=== PATIENT | male | born 1975 | race Caucasian/White ===

== ENCOUNTER 2020-04-28 17:18 | Inpatient (IN) | payer OTHER ==
[~2020-04-28] VITALS: Ht 165.1 cm; Wt 171.1 kg
[2020-04-28 17:31] VITALS: BP 150/77
[2020-04-28 18:28] LABS: BASO % 0.2 % (0.0-1.0); HEMATOCRIT 38.2 % (42.0-52.0); LYMPH # 0.8 10*3/uL (1.3-4.4); LYMPH % 20.4 % (27.0-41.0); MEAN CELL VOLUME 92.5 fl (80.0-94.0); MEAN CORPUSCULAR HGB 30.5 pg (27.0-31.0); MONO # 0.4 10*3/uL (0.1-1.0); MONO % 10.2 % (3.0-9.0); NEUT # 2.8 10*3/uL (2.3-7.9); NEUT % 68.5 % (47.0-73.0); PLATELET COUNT AUTOMATED 175 10*3/uL (130-400); RED BLOOD COUNT 4.13 10*6/uL (4.50-5.90); RED CELL DISTRI WIDTH 12.9 % (0-14.5)
[2020-04-28 18:43] LABS: ACT PARTIAL THROMBO TIME 25.9 SECONDS (20.0-32.1)
[2020-04-28 18:54] LABS: ALBUMIN 2.8 gm/dl (3.1-4.5); ALKALINE PHOSPHATASE 59 U/L (45-117); BUN 10 mg/dl (7-24); CHLORIDE 105 mmol/L (98-107); CREATININE 1.11 mg/dL (0.70-1.30); LDH 484 U/L (87-241); LIPASE 123 U/L (73-393); POTASSIUM 3.6 mmol/L (3.5-5.1); SGOT/AST 63 IU/L (3-35); SGPT/ALT 82 U/L (12-78); SODIUM 137 mmol/L (136-145); TOTAL PROTEIN 7.5 gm/dL (6.4-8.2); TROPONIN I < 0.015 ng/ml (<0.045)
--- NOTE | 2020-04-28 20:26 | NUR ---
UPON WATCHING THE PATIENTS VITAL SIGNS ON THE MONITOR, HIS PULSE OX WAS SHOWING 87-88% ON 4 LITERS VIA NASAL CANNULA. EQUIPMENT WAS CHECKED TO DETERMINE IF THERE WAS A MALFUNCTION WITH EQUIPMENT. PATIENT WAS THEN INCREASED TO 6 LITERS. NO CHANGE IN STATUS. PATIENT THEN PLACED ON A NON REBREATHER AT 15 LITERS. PATIENT PULSE OX INCREASED TO 95%. PROVIDER DR SCHMITZ INFORMED OF THIS INFORMATION. THE PATIENT DENIES ANY SOB AT THIS TIME. PATIENT IS NO OBVIOUS DISTRESS.
--- NOTE | 2020-04-28 20:45 | NUR ---
PER DR SCHMITZ, RESPIRATORY HAS BEEN CONTACTED TO POSSIBLY PLACE THE PATIENT ON BIPAP.
--- NOTE | 2020-04-28 20:46 | NUR ---
DR SCHMITZ REQUEST THAT THE PATIENT BE MOVED TO ED ROOM #7.
--- NOTE | 2020-04-28 20:55 | NUR ---
pt placed on an opti flow for low sats. At this time he is resting comfortably on a flow of 50 and an o2 of 50%. Pt sats at this time are 95%. Pt is tammy. very well at this time. Will continue to monitor for a desat and adjust as needed.
[2020-04-28 21:18] VITALS: BP 110/68
--- NOTE | 2020-04-28 21:30 | NUR ---
PATIENT IS RESTING IN POSITION OF COMFORT. TOLERATING OPTI-FLOW. CALL LIGHT IN REACH. WILL CONTINUE TO MONITOR PT.
--- NOTE | 2020-04-28 21:45 | NUR ---
PATIENT IS RESTING. ABLE TO BE VISUALIZED FROM [place] AT DESK PATIENT VITAL SIGNS ARE STABLE AT THIS TIME. WILL CONTINUE TO MONITOR PT.
[2020-04-28 21:48] VITALS: BP 130/74
--- NOTE | 2020-04-28 22:00 | NUR ---
PATIENT IS RESTING AT THIS TIME. CALL LIGHT WITHIN REACH. PROVIDED TELEVISION, TOLERATING OPTI-FLOW. WILL CONTINUE TO MONITOR PT.
[2020-04-28 22:18] VITALS: BP 130/74
[2020-04-28 22:48] VITALS: BP 108/67
[2020-04-28 23:02] LABS: ABG BASE EXCESS -1.3 mmol/L (-2.0-2.0); ARTERIAL BLOOD GAS PH 7.431 (7.35-7.45)
[2020-04-28 23:16] VITALS: BP 108/67
[2020-04-29] VITALS (7 sets, daily range): BP systolic 104–138; BP diastolic 40–94
--- NOTE | 2020-04-29 | NUR ---
PT SLEEPING AT THIS TIME LOLA DAY RN.
--- NOTE | 2020-04-29 00:44 | NUR ---
PT REMAINS SLEEPING MONITOR SHOWING SINUS RHYTHM. LOLA DAY RN.
--- NOTE | 2020-04-29 02:50 | NUR ---
A 45, admitted to , under the services of ROSLYN Walton DO with a diagnosis of SUSPECTED COVID-19, RESPIRATORY FAILURE, PNEUMONIA. Chief complaint is SHORTNESS OF BREATH. Patient arrived via bed from ER. Monitor applied. Initial assessment completed. Vital signs taken and recorded. ROSLYN WALTON DO notified of admission to the unit. Orders received. See assessment for past medical history, medications and allergies. Patient and/or family oriented to unit. [address] visitation policy reviewed. Clothing/patient valuable form completed. VICTOR MANUEL STONER
--- NOTE | 2020-04-29 03:55 | NUR ---
MEDICATED WITH PRN TYLENOL FOR LOW GRADE TEMP OF 99.1.
--- NOTE | 2020-04-29 05:44 | NUR ---
NOTIFIED OF NEW CONSULT. NEW ORDERS RECEIVED.
--- NOTE | 2020-04-29 05:45 | NUR ---
ROSS FROM RESPIRATORY NOTIFIED WANTS PATIENT ON BIPAP 16/10 AND ABG IN 2 HOURS. ROSS STATES SHE WILL BE UP TO PUT HIM ON.
[2020-04-29 05:50] LABS: ALBUMIN 2.8 gm/dl (3.1-4.5); ALKALINE PHOSPHATASE 61 U/L (45-117); BUN 14 mg/dl (7-24); CHLORIDE 108 mmol/L (98-107); CHOLESTEROL 143 mg/dL (<200); CREATININE 0.93 mg/dL (0.70-1.30); LDH 496 U/L (87-241); POTASSIUM 4.1 mmol/L (3.5-5.1); SGOT/AST 54 IU/L (3-35); SGPT/ALT 76 U/L (12-78); SODIUM 138 mmol/L (136-145); TRIGLYCERIDES 98 mg/dl (<150); VLDL CHOLESTEROL 20 mg/dL (6-40)
[2020-04-29 05:51] LABS: CPK 112 U/L (39-308); HDL CHOLESTEROL 35 mg/dl (40-60); LDL CHOLESTEROL 88 mg/dL (9-159)
[2020-04-29 06:07] LABS: BASO % 0.3 % (0.0-1.0); HEMATOCRIT 38.3 % (42.0-52.0); LYMPH # 0.6 10*3/uL (1.3-4.4); MEAN CELL VOLUME 91.2 fl (80.0-94.0); MEAN CORPUSCULAR HGB 30.2 pg (27.0-31.0); MEAN CORPUSCULAR HGB CONC 33.2 g/dl (33.0-37.0); MEAN PLATELET VOLUME 10.1 fl (9.6-12.3); MONO # 0.3 10*3/uL (0.1-1.0); MONO % 10.9 % (3.0-9.0); NEUT # 2.1 10*3/uL (2.3-7.9); NEUT % 68.8 % (47.0-73.0); PLATELET COUNT AUTOMATED 195 10*3/uL (130-400); RED CELL DISTRI WIDTH 12.8 % (0-14.5); WHITE BLOOD COUNT 3.1 10*3/uL (4.8-10.8)
--- NOTE | 2020-04-29 06:15 | NUR ---
PT SWABBED IN ER. DUPLICATED SWAB PUT IN PER OK TO CANCEL DUPLICATE SWAB.
[2020-04-29 07:40] LABS: FERRITIN 538.4 ng/mL (22.0-322.0); VITAMIN D, 25-HYDROXY 7.7 ng/mL (30-100)
--- NOTE | 2020-04-29 09:00 | NUR ---
[employer] Director in to talk to patient. Patient states lives at home alone with his family checking in on him. There are 0 steps in the home. Physician: no family physician Pharmacy: print Home health services: none Patient's level of ADLs: INDEPENDENT Patient has working utilities: yes DME: none Follow-up physician's appointment after d/c: will be made by the hospitalist nurse director upon discharge Does patient want to access PORTAL?: no Discharge plan discussed with patient. He lives at home alone with his family checking in on him. he states he is independent in his ADLS and ambulation. Discussed home health care services and he declines. CM will continue to follow for any discharge planning needs. When medically stable he will be discharged to home. He states a family member will provide transportation on discharge. MAHENDRA QUAN
--- NOTE | 2020-04-29 09:10 | NUR ---
TOOK PT OFF BIPAP AFTER ABG DONE, PLACED PT ON 6LNC, SPO2 93%
[2020-04-29 09:12] LABS: ABG BASE EXCESS -1.5 mmol/L (-2.0-2.0); ARTERIAL BLOOD GAS PH 7.407 (7.35-7.45)
[2020-04-29 16:36] LABS: ARTERIAL BLOOD GAS PH 7.437 (7.35-7.45)
--- NOTE | 2020-04-29 19:30 | NUR ---
PT SITTING UP IN BED. RESPS EASY AND NON LABORED. NO S/S OF DISTRESS NOTED. VSS. WHITE BOARD UPDATED. POC DISCUSSED W PT. A/O X3. ON BIPAP AT THIS TIME. C/O HUERTA. NO SOB @REST. PT ENCOURAGED TO PRONE AND DEEP BREATHE TOLERATED. WILL CONTINUE TO MONITOR. CALL LIGHT WITHIN REACH.
--- NOTE | 2020-04-29 19:46 | NUR ---
PT PLACED ON BIPAP.
[2020-04-30] VITALS: BP 125/87
--- NOTE | 2020-04-30 01:02 | NUR ---
PT SLEEPING. RESPS EASY AND NON LABORED. NO S/S OF DISTRESS NOTED. CALL LIGHT WITHIN REACH.
--- NOTE | 2020-04-30 05:34 | NUR ---
PT ASKED TO BE TAKEN OFF BIPAP. PLACED ON 6 LHFNC
[2020-04-30 06:27] LABS: HEMATOCRIT 38.8 % (42.0-52.0); LYMPH # 0.9 10*3/uL (1.3-4.4); LYMPH % 13.9 % (27.0-41.0); MEAN CELL VOLUME 92.4 fl (80.0-94.0); MEAN CORPUSCULAR HGB 30.5 pg (27.0-31.0); MEAN PLATELET VOLUME 10.2 fl (9.6-12.3); MONO # 0.7 10*3/uL (0.1-1.0); MONO % 10.2 % (3.0-9.0); NEUT # 4.8 10*3/uL (2.3-7.9); NEUT % 74.6 % (47.0-73.0); PLATELET COUNT AUTOMATED 242 10*3/uL (130-400); RED CELL DISTRI WIDTH 12.9 % (0-14.5); WHITE BLOOD COUNT 6.4 10*3/uL (4.8-10.8)
[2020-04-30 06:45] LABS: ALBUMIN 2.9 gm/dl (3.1-4.5); ALKALINE PHOSPHATASE 56 U/L (45-117); BUN 18 mg/dl (7-24); CHLORIDE 106 mmol/L (98-107); CREATININE 0.94 mg/dL (0.70-1.30); LDH 481 U/L (87-241); POTASSIUM 3.7 mmol/L (3.5-5.1); SGOT/AST 37 IU/L (3-35); SGPT/ALT 65 U/L (12-78); SODIUM 140 mmol/L (136-145)
[2020-04-30 06:46] LABS: CPK 78 U/L (39-308)
[2020-04-30 08:00] VITALS: BP 138/81
--- NOTE | 2020-04-30 09:00 | NUR ---
CM called in to speak to patient. Discharge plan is for patient to return home. Discussed home health care services and he declines. CM will continue to follow for any discharge planning needs.
[2020-04-30 09:12] LABS: ABG BASE EXCESS 1.1 mmol/L (-2.0-2.0); ARTERIAL BLOOD GAS PH 7.452 (7.35-7.45)
[2020-04-30 12:00] VITALS: BP 123/78
--- NOTE | 2020-04-30 14:16 | NUR ---
PT PLACED ON BIPAP. TOLERATING WELL. SPO2 97%
[2020-04-30 16:00] VITALS: BP 105/46
--- NOTE | 2020-04-30 16:03 | NUR ---
Patient resting quietly with no c/o discomfort. Respirations easy and regular. Vital signs stable. No overt distress. PADMA HARKINS
--- NOTE | 2020-04-30 19:10 | NUR ---
PT TAKEN OFF BIPAP AND PLACED ON 6LNC. DINNER TIME
[2020-04-30 20:00] VITALS: BP 119/66
[2020-05-01] VITALS: BP 107/47
--- NOTE | 2020-05-01 04:44 | NUR ---
24 HR chart check completed.
[2020-05-01 07:30] LABS: HEMATOCRIT 38.2 % (42.0-52.0); MEAN CELL VOLUME 92.9 fl (80.0-94.0); MEAN CORPUSCULAR HGB 30.7 pg (27.0-31.0); MEAN PLATELET VOLUME 9.8 fl (9.6-12.3); PLATELET COUNT AUTOMATED 267 10*3/uL (130-400); RED BLOOD COUNT 4.11 10*6/uL (4.50-5.90); WHITE BLOOD COUNT 6.8 10*3/uL (4.8-10.8)
[2020-05-01 07:45] LABS: ALBUMIN 2.6 gm/dl (3.1-4.5); ALKALINE PHOSPHATASE 53 U/L (45-117); BUN 21 mg/dl (7-24); CHLORIDE 111 mmol/L (98-107); CREATININE 0.94 mg/dL (0.70-1.30); LDH 476 U/L (87-241); POTASSIUM 4.2 mmol/L (3.5-5.1); SGOT/AST 30 IU/L (3-35); SGPT/ALT 57 U/L (12-78); SODIUM 144 mmol/L (136-145); TOTAL PROTEIN 7.5 gm/dL (6.4-8.2)
[2020-05-01 07:57] LABS: CPK 56 U/L (39-308)
[2020-05-01 08:00] VITALS: BP 118/77
[2020-05-01 08:47] LABS: ATYPICAL LYMPHS 2 % (0-0); PLATELET SUFFICIENCY NORMAL (NORMAL); TOTAL CELLS COUNTED 100 #CELLS
--- NOTE | 2020-05-01 09:00 | NUR ---
CM spoke to patient via phone. Discharge plan is for patient to return home. Discussed home health care services and he declines. CM will continue to follow for any discharge planning needs.
[2020-05-01 09:23] LABS: ABG BASE EXCESS 1.2 mmol/L (-2.0-2.0); ARTERIAL BLOOD GAS PH 7.442 (7.35-7.45)
--- NOTE | 2020-05-01 09:37 | NUR ---
CUTTER GRINDER OPERATOR RECEIVED CALL FROM PATIENTS TRANSITION CARE RN [facility] ([phone]). LINDA ASKED FOR AN UPDATE. CUTTER GRINDER OPERATOR PROVIDED UPDATE.
--- NOTE | 2020-05-01 10:02 | NUR ---
TYLENO, GIVEN FOR C/O HEADACHE. WILL MONITOR.
[2020-05-01 12:00] VITALS: BP 156/70
[2020-05-01 16:00] VITALS: BP 112/90
--- NOTE | 2020-05-01 17:18 | NUR ---
PT. ON NC AT 6L, SAT 95%. PT. DECLINES BIPAP. TOLD PT. DR. HARE ENCOURAGES HIM TO WEAR MUCH POSSIBLE.
--- NOTE | 2020-05-01 19:38 | NUR ---
24 HR chart check completed.
[2020-05-01 20:00] VITALS: BP 146/83
[2020-05-02] VITALS: BP 134/82
--- NOTE | 2020-05-02 03:39 | NUR ---
PATIENT REMOVED FROM BIPAP AT 0310 AM PER THEIR REQUEST. PATIENT PLACED ON NASAL CANNULA WITH CONTINUOES PULSE OX ON. RN AWARE.
--- NOTE | 2020-05-02 06:00 | NUR ---
SLEEPING NOT ACUTE DISTRESS NOTED. DID WELL THROUGHOUT SHIFT.
[2020-05-02 08:00] VITALS: BP 104/90
[2020-05-02 08:18] LABS: HEMATOCRIT 37.9 % (42.0-52.0); MEAN CELL VOLUME 93.8 fl (80.0-94.0); MEAN CORPUSCULAR HGB 30.4 pg (27.0-31.0); MEAN CORPUSCULAR HGB CONC 32.5 g/dl (33.0-37.0); MEAN PLATELET VOLUME 10.2 fl (9.6-12.3); PLATELET COUNT AUTOMATED 294 10*3/uL (130-400); RED BLOOD COUNT 4.04 10*6/uL (4.50-5.90); RED CELL DISTRI WIDTH 13.2 % (0-14.5); WHITE BLOOD COUNT 6.8 10*3/uL (4.8-10.8)
[2020-05-02 08:45] LABS: CREATININE 0.82 mg/dL (0.70-1.30)
[2020-05-02 08:56] LABS: ATYPICAL LYMPHS 1 % (0-0); PLATELET SUFFICIENCY NORMAL (NORMAL); TOTAL CELLS COUNTED 100 #CELLS
[2020-05-02 09:08] LABS: ABG BASE EXCESS -0.6 mmol/L (-2.0-2.0); ARTERIAL BLOOD GAS PH 7.438 (7.35-7.45)
[2020-05-02 12:00] VITALS: BP 105/73
[2020-05-02 16:00] VITALS: BP 131/74
[2020-05-02 20:00] VITALS: BP 121/60
--- NOTE | 2020-05-02 21:08 | NUR ---
PATIENT REFUSED TO HAVE LOVENONX SHOT GIVEN.
--- NOTE | 2020-05-02 23:52 | NUR ---
PLACED PATIENT ON BIPAP FOR HS
[2020-05-03] VITALS: BP 140/74
--- NOTE | 2020-05-03 01:52 | NUR ---
24 HR chart check completed.
--- NOTE | 2020-05-03 03:44 | NUR ---
CALLED OUT AND WANTED OFF THE BIPAP. BIPAP TAKEN OFF AND O2 6L HIGH FLOW NC IN USE. UP TO BATHROOM VOIDED 425CC CLEAR YELLOW.
[2020-05-03 06:24] LABS: HEMATOCRIT 38.1 % (42.0-52.0); MEAN CELL VOLUME 91.4 fl (80.0-94.0); MEAN CORPUSCULAR HGB 30.5 pg (27.0-31.0); MEAN CORPUSCULAR HGB CONC 33.3 g/dl (33.0-37.0); MEAN PLATELET VOLUME 10.1 fl (9.6-12.3); PLATELET COUNT AUTOMATED 340 10*3/uL (130-400); RED BLOOD COUNT 4.17 10*6/uL (4.50-5.90); RED CELL DISTRI WIDTH 12.9 % (0-14.5); WHITE BLOOD COUNT 8.1 10*3/uL (4.8-10.8)
[2020-05-03 06:29] LABS: ALBUMIN 2.6 gm/dl (3.1-4.5); BUN 15 mg/dl (7-24); CHLORIDE 108 mmol/L (98-107); POTASSIUM 3.6 mmol/L (3.5-5.1); SODIUM 142 mmol/L (136-145)
[2020-05-03 06:33] LABS: ALKALINE PHOSPHATASE 57 U/L (45-117); CREATININE 0.87 mg/dL (0.70-1.30); LDH 407 U/L (87-241); SGOT/AST 21 IU/L (3-35); SGPT/ALT 74 U/L (12-78); TOTAL PROTEIN 7.3 gm/dL (6.4-8.2)
[2020-05-03 07:25] LABS: ATYPICAL LYMPHS 1 % (0-0); TOTAL CELLS COUNTED 100 #CELLS
[2020-05-03 07:26] LABS: PLATELET SUFFICIENCY NORMAL (NORMAL); POLYCHROMASIA SLIGHT
[2020-05-03 08:00] VITALS: BP 119/79
[2020-05-03 08:01] LABS: ABG BASE EXCESS 2.4 mmol/L (-2.0-2.0); ARTERIAL BLOOD GAS PH 7.494 (7.35-7.45)
[2020-05-03 12:00] VITALS: BP 128/69
[2020-05-03 16:00] VITALS: BP 108/54
[2020-05-03 20:00] VITALS: BP 130/56
--- NOTE | 2020-05-03 22:32 | NUR ---
24 HR chart check completed.
[2020-05-04] VITALS: BP 132/92
[2020-05-04 07:31] LABS: HEMATOCRIT 38.6 % (42.0-52.0); MEAN CELL VOLUME 91.5 fl (80.0-94.0); MEAN CORPUSCULAR HGB 29.9 pg (27.0-31.0); MEAN CORPUSCULAR HGB CONC 32.6 g/dl (33.0-37.0); MEAN PLATELET VOLUME 9.9 fl (9.6-12.3); PLATELET COUNT AUTOMATED 332 10*3/uL (130-400); RED BLOOD COUNT 4.22 10*6/uL (4.50-5.90); RED CELL DISTRI WIDTH 12.9 % (0-14.5); WHITE BLOOD COUNT 10.6 10*3/uL (4.8-10.8)
[2020-05-04 07:56] LABS: PLATELET SUFFICIENCY NORMAL (NORMAL); POLYCHROMASIA SLIGHT; TOTAL CELLS COUNTED 100 #CELLS
[2020-05-04 08:00] VITALS: BP 122/74
[2020-05-04 08:02] LABS: BUN 18 mg/dl (7-24); CHLORIDE 108 mmol/L (98-107); CREATININE 0.83 mg/dL (0.70-1.30); POTASSIUM 3.9 mmol/L (3.5-5.1); SODIUM 141 mmol/L (136-145)
[2020-05-04 12:00] VITALS: BP 136/80
[2020-05-04 16:00] VITALS: BP 126/78
[2020-05-04 20:00] VITALS: BP 129/70
--- NOTE | 2020-05-04 20:46 | NUR ---
24 HR chart check completed.
[2020-05-05] VITALS: BP 132/94
--- NOTE | 2020-05-05 00:07 | NUR ---
AT THIS TIME PT IS UP AT THE BEDSIDE ON HIS PHONE AND DOES NOT WANT TO GO ONTO THE BIPAP. HE IS IN NO DISTRESS. WILL CHECK BACK LATER.
[2020-05-05 08:00] VITALS: BP 122/76
--- NOTE | 2020-05-05 08:48 | NUR ---
CM spoke to patient via phone. Discussed any home needs on discharge and he is unsure at this time. CM will continue to follow for any discharge planning needs. Instructed patient if something was to come up please let his nurse know.
[2020-05-05 12:00] VITALS: BP 127/67
[2020-05-05] MEDS ORDERED: AUGMENTIN 875875 MG PO (12:26)
[2020-05-05] MEDS ORDERED: PREDNISONE10 MG PO (12:26)
[2020-05-05 15:13] LABS: ABG BASE EXCESS 1.7 mmol/L (-2.0-2.0); ARTERIAL BLOOD GAS PH 7.473 (7.35-7.45)
[2020-05-05 16:00] VITALS: BP 124/72
--- NOTE | 2020-05-05 16:59 | NUR ---
HOME O2 ASSESSMENT ROOM AIR AT REST: SPO2 92% HR 104 RR 16 BP 124/72 ROOM AIR WITH AMBULATION: SPO2 87% HR 134 2L NC WITH AMBULATION: SPO2 93% HR 118 RECOVERY ON 2L NC: SPO2 94% HR 108 RR 16 BP 126/74 PT. REQUIRED 2L O2 VIA NC DURING EXERTION TO KEEP SPO2 >= TO 88%. RN NOTIFIED WITH RESULTS.
[2020-05-05 20:00] VITALS: BP 138/76
--- NOTE | 2020-05-05 20:38 | NUR ---
24 HR chart check completed.
--- NOTE | 2020-05-05 21:00 | NUR ---
RESTING IN BED WITH NO ACUTE DISTRESS NOTED. RESPIRATIONS EASY. LUNGS DIMINISHED. PULSE OX 92% 2L. INFREQUENT COUGH. CALL LIGHT WITHIN REACH. NO VOICED COMPLAINTS
--- NOTE | 2020-05-05 23:46 | NUR ---
Pt refusing BiPap at this time. Pt is on room air. SPO2 96%
[2020-05-06] VITALS: BP 126/71
--- NOTE | 2020-05-06 00:30 | NUR ---
SLEEPING. NO DISTRESS NOTED. RESPIRATIONS EASY. VSS. CALL LIGHT WITHIN REACH
--- NOTE | 2020-05-06 06:00 | NUR ---
SLEPT THROUGHOUT NIGHT WITH NO DISTRESS NOTED. RESPIRATIONS EASY. O2 IN USE AT 2L. CALL LIGHT WITHIN REACH. NO VOICED COMPLAINTS
[2020-05-06 08:00] VITALS: BP 121/91
--- NOTE | 2020-05-06 08:16 | NUR ---
Received O2 prescription from Dr. Mello. Spoke to Kimberly at [facility]. Faxed referral. Kimberly states as soon as a corrugated fastener driver gets in this morning they will have a tank delivered.
--- NOTE | 2020-05-06 09:20 | NUR ---
Spoke to patient via phone. Notified waiting on his O2 delivery for home and he verbalized an understanding. Discussed home health care services and he declines. CM will continue to follow for any other discharge planning needs.
--- NOTE | 2020-05-06 11:02 | NUR ---
DR SNEED AND DR FONTANA NOTIFIED OF [address] LORENZO CURRENTLY ROUNDING.
--- NOTE | 2020-05-06 11:50 | NUR ---
Discharge instructions reviewed with patient/family. Patient receptive and verbalizes understanding. Follow-up care arranged. Written instructions given to patient/family. PADMA HARKINS
== END 2020-05-06 11:50 | disposition home or self-care (01) | DRG 720 ==
LOC: ED 17:18 → 4E 21:58 → EDHOLD 21:58 → 4E 04-29 02:02
PROVIDERS: Family Medicine; Internal Medicine; Internal Medicine Critical Care Medicine; ADMIT Internal Medicine; ATTEND Internal Medicine
PROC: 5A09357 Assistance with Respiratory Ventilation, Less than 24 Consecutive Hours, Continuous Positive Airway Pressure (ICD-10-PCS; principal; 2020-04-29)
PROC: XW033E5 Introduction of Remdesivir Anti-infective into Peripheral Vein, Percutaneous Approach, New Technology Group 5 (ICD-10-PCS; 2020-04-29)
PROC: 5A09357 Assistance with Respiratory Ventilation, Less than 24 Consecutive Hours, Continuous Positive Airway Pressure (ICD-10-PCS; 2020-04-30)
PROC: 5A09357 Assistance with Respiratory Ventilation, Less than 24 Consecutive Hours, Continuous Positive Airway Pressure (ICD-10-PCS; 2020-05-01)
PROC: 5A09357 Assistance with Respiratory Ventilation, Less than 24 Consecutive Hours, Continuous Positive Airway Pressure (ICD-10-PCS; 2020-05-02)
PROC: 5A09357 Assistance with Respiratory Ventilation, Less than 24 Consecutive Hours, Continuous Positive Airway Pressure (ICD-10-PCS; 2020-05-03)
PROC: 5A09357 Assistance with Respiratory Ventilation, Less than 24 Consecutive Hours, Continuous Positive Airway Pressure (ICD-10-PCS; 2020-05-04)
PROC: 5A09357 Assistance with Respiratory Ventilation, Less than 24 Consecutive Hours, Continuous Positive Airway Pressure (ICD-10-PCS; 2020-05-05)
DX: A41.9 Sepsis, unspecified organism (principal); R65.20 Severe sepsis without septic shock; J15.6 Pneumonia due to other Gram-negative bacteria; Z20.828 Contact with and (suspected) exposure to other viral communicable diseases; J96.01 Acute respiratory failure with hypoxia; E44.0 Moderate protein-calorie malnutrition; R74.02 Elevation of levels of lactic acid dehydrogenase [LDH]; J84.9 Interstitial pulmonary disease, unspecified; E66.01 Morbid (severe) obesity due to excess calories; D68.59 Other primary thrombophilia; D64.9 Anemia, unspecified; R74.01 Elevation of levels of liver transaminase levels; D72.810 Lymphocytopenia; I51.7 Cardiomegaly; K76.0 Fatty (change of) liver, not elsewhere classified; M19.90 Unspecified osteoarthritis, unspecified site; R73.9 Hyperglycemia, unspecified; E83.41 Hypermagnesemia; R70.0 Elevated erythrocyte sedimentation rate; Z90.49 Acquired absence of other specified parts of digestive tract; Z82.49 Family history of ischemic heart disease and other diseases of the circulatory system; Z68.44 Body mass index [BMI] 60.0-69.9, adult

== ENCOUNTER → 2020-06-11 | Outpatient (CLI) | payer OTHER ==
[~2020-06-11] MED LIST: AUGMENTIN 875875 MG PO; PREDNISONE10 MG PO
[2020-06-11 09:46] LABS: BASO # 0.1 10*3/uL (0.0-0.1); EOS # 0.1 10*3/uL (0.0-0.4); EOS % 1.7 % (1.0-4.0); HEMATOCRIT 37.6 % (42.0-52.0); LYMPH # 2.2 10*3/uL (1.3-4.4); MEAN CELL VOLUME 96.4 fl (80.0-94.0); MEAN CORPUSCULAR HGB CONC 32.2 g/dl (33.0-37.0); MEAN PLATELET VOLUME 10.1 fl (9.6-12.3); MONO # 0.6 10*3/uL (0.1-1.0); MONO % 9.3 % (3.0-9.0); NEUT % 49.3 % (47.0-73.0); PLATELET COUNT AUTOMATED 172 10*3/uL (130-400); RED CELL DISTRI WIDTH 13.6 % (0-14.5)
[2020-06-11 10:18] LABS: ALBUMIN 3.2 gm/dl (3.1-4.5); BUN 15 mg/dl (7-24); CHLORIDE 111 mmol/L (98-107); CHOLESTEROL 195 mg/dL (<200); CREATININE 1.03 mg/dL (0.70-1.30); SGOT/AST 13 IU/L (3-35); SGPT/ALT 20 U/L (12-78); SODIUM 141 mmol/L (136-145); TOTAL PROTEIN 7.1 gm/dL (6.4-8.2); TRIGLYCERIDES 93 mg/dl (<150); VLDL CHOLESTEROL 19 mg/dL (6-40)
[2020-06-11 10:25] LABS: ALKALINE PHOSPHATASE 73 U/L (45-117); HDL CHOLESTEROL 47 mg/dl (40-60); LDL CHOLESTEROL 129 mg/dL (9-159)
== END | disposition home or self-care (01) ==
LOC: LAB 09:24
PROVIDERS: ATTEND Nurse Practitioner Primary Care
DX: I51.7 Cardiomegaly (principal); R73.9 Hyperglycemia, unspecified; U07.1 COVID-19; Z99.81 Dependence on supplemental oxygen

== ENCOUNTER → 2020-06-15 | Outpatient (CLI) | payer OTHER | END | disposition home or self-care (01) | LOC: US 06-12 11:30 | PROVIDERS: ATTEND Nurse Practitioner Primary Care | DX: M79.89 Other specified soft tissue disorders (principal); R79.89 Other specified abnormal findings of blood chemistry ==

== ENCOUNTER → 2020-09-02 | Outpatient (CLI) | payer OTHER | END | disposition home or self-care (01) | LOC: CP 12:18 | PROVIDERS: ATTEND Internal Medicine Pulmonary Disease | DX: U07.1 COVID-19 (principal); J98.4 Other disorders of lung ==

== ENCOUNTER → 2020-09-14 | Outpatient (CLI) | payer OTHER ==
[2020-09-14 11:56] LABS: BUN 15 mg/dl (7-24); CHLORIDE 110 mmol/L (98-107); CREATININE 1.09 mg/dL (0.70-1.30); POTASSIUM 4.3 mmol/L (3.5-5.1); SODIUM 141 mmol/L (136-145)
== END | disposition home or self-care (01) ==
LOC: LAB 10:39
PROVIDERS: ATTEND Nurse Practitioner Primary Care
DX: E55.9 Vitamin D deficiency, unspecified (principal); R53.83 Other fatigue; R63.5 Abnormal weight gain; R00.0 Tachycardia, unspecified

== ENCOUNTER → 2022-07-14 | Outpatient (CLI) | payer OTHER | END | disposition home or self-care (01) | LOC: LAB 18:06 | PROVIDERS: ATTEND Dietitian, Registered | DX: E51.9 Thiamine deficiency, unspecified (principal) ==

== ENCOUNTER → 2024-03-12 | Outpatient (CLI) | payer OTHER | END | disposition home or self-care (01) | LOC: RAD 13:18 | PROVIDERS: ATTEND Physician Assistant | DX: M17.0 Bilateral primary osteoarthritis of knee (principal); E66.01 Morbid (severe) obesity due to excess calories; M54.50 Low back pain, unspecified ==

== ENCOUNTER → 2024-04-01 | Day surgery (SDC) | payer OTHER ==
[~2024-04-01] VITALS: Ht 167.6 cm; Wt 113.4 kg
[~2024-04-01] MED LIST changes: +Lactated Ringer's Solution 500 ML IV ONE; +Lidocaine Hydrochloride 5 ML VIAL IV ONE; +PROPOFOL 200 MG/20 ML VIAL IV ONE; +PROZAC20 MG PO; +ROPINIROLE HYD0.5 MG PO; +SUMATRIPTAN SUC50 M1 PO; +SYMB80 INH; +TOPAMAX25 M3 PO
[2024-04-01 07:25] VITALS: BP 92/59
[2024-04-01 08:53] VITALS: BP 93/50
[2024-04-01 09:10] VITALS: BP 89/50
[2024-04-01 09:25] VITALS: BP 88/49
== END | disposition home or self-care (01) ==
LOC: SDC 03-28 08:00
PROVIDERS: ATTEND Surgery
DX: Z12.11 Encounter for screening for malignant neoplasm of colon (principal); K63.5 Polyp of colon; K64.8 Other hemorrhoids; G43.909 Migraine, unspecified, not intractable, without status migrainosus; J44.9 Chronic obstructive pulmonary disease, unspecified; M19.90 Unspecified osteoarthritis, unspecified site; F41.9 Anxiety disorder, unspecified; C81.90 Hodgkin lymphoma, unspecified, unspecified site; G47.30 Sleep apnea, unspecified; F32.A Depression, unspecified; E44.0 Moderate protein-calorie malnutrition; Z98.84 Bariatric surgery status; Z86.16 Personal history of COVID-19; Z90.49 Acquired absence of other specified parts of digestive tract; Z87.891 Personal history of nicotine dependence; Z98.890 Other specified postprocedural states; Z79.899 Other long term (current) drug therapy; Z82.49 Family history of ischemic heart disease and other diseases of the circulatory system

== ENCOUNTER → 2024-08-19 | Outpatient (CLI) | payer OTHER ==
[~2024-08-19] MED LIST changes: +APAP500 MG PO; +ARTHRITIS PAIN150 GM T; +CEPHALEXIN500 M1 PO; +CLOTRIMAZOLE-BE30 ML T; +COLACE100 MG PO; +ESCITALOPRAM OX20 MG PO; +LEVOFLOXACIN750 M2 PO; -Lactated Ringer's Solution 500 ML IV ONE; -Lidocaine Hydrochloride 5 ML VIAL IV ONE; -PROPOFOL 200 MG/20 ML VIAL IV ONE
== END | disposition home or self-care (01) ==
LOC: WOUNDCARE 01:09
PROVIDERS: ATTEND Nurse Practitioner Family
DX: T81.89XA Other complications of procedures, not elsewhere classified, initial encounter (principal); L02.211 Cutaneous abscess of abdominal wall; D64.9 Anemia, unspecified; I10 Essential (primary) hypertension; J44.89 Other specified chronic obstructive pulmonary disease; J44.9 Chronic obstructive pulmonary disease, unspecified; G43.809 Other migraine, not intractable, without status migrainosus; E43 Unspecified severe protein-calorie malnutrition; E66.01 Morbid (severe) obesity due to excess calories; F17.201 Nicotine dependence, unspecified, in remission; F41.9 Anxiety disorder, unspecified; Z68.39 Body mass index [BMI] 39.0-39.9, adult; Z90.49 Acquired absence of other specified parts of digestive tract; Z85.71 Personal history of Hodgkin lymphoma; Z98.890 Other specified postprocedural states; Z79.899 Other long term (current) drug therapy; Y83.8 Other surgical procedures as the cause of abnormal reaction of the patient, or of later complication, without mention of misadventure at the time of the procedure; Y92.89 Other specified places as the place of occurrence of the external cause

== ENCOUNTER → 2024-08-26 | Outpatient (CLI) | payer OTHER | END | disposition home or self-care (01) | LOC: WOUNDCARE 10:14 | PROVIDERS: ATTEND Nurse Practitioner Family | DX: T81.89XD Other complications of procedures, not elsewhere classified, subsequent encounter (principal); L02.211 Cutaneous abscess of abdominal wall; I10 Essential (primary) hypertension; D64.9 Anemia, unspecified; J44.89 Other specified chronic obstructive pulmonary disease; G43.909 Migraine, unspecified, not intractable, without status migrainosus; E43 Unspecified severe protein-calorie malnutrition; F41.9 Anxiety disorder, unspecified; F17.201 Nicotine dependence, unspecified, in remission; Z68.39 Body mass index [BMI] 39.0-39.9, adult; Z85.71 Personal history of Hodgkin lymphoma; Z95.1 Presence of aortocoronary bypass graft; Z90.49 Acquired absence of other specified parts of digestive tract; Z98.890 Other specified postprocedural states; Z79.899 Other long term (current) drug therapy; Y83.8 Other surgical procedures as the cause of abnormal reaction of the patient, or of later complication, without mention of misadventure at the time of the procedure ==

== ENCOUNTER → 2024-08-28 | Outpatient (CLI) | payer OTHER | END | disposition home or self-care (01) | LOC: WOUNDCARE 02:30 | PROVIDERS: ATTEND Nurse Practitioner Family | DX: T81.89XD Other complications of procedures, not elsewhere classified, subsequent encounter (principal); L02.211 Cutaneous abscess of abdominal wall; I10 Essential (primary) hypertension; D64.9 Anemia, unspecified; J44.89 Other specified chronic obstructive pulmonary disease; G43.909 Migraine, unspecified, not intractable, without status migrainosus; E66.01 Morbid (severe) obesity due to excess calories; F17.201 Nicotine dependence, unspecified, in remission; F41.9 Anxiety disorder, unspecified; Z85.71 Personal history of Hodgkin lymphoma; Z90.49 Acquired absence of other specified parts of digestive tract; Z98.890 Other specified postprocedural states; Z79.899 Other long term (current) drug therapy; Y83.8 Other surgical procedures as the cause of abnormal reaction of the patient, or of later complication, without mention of misadventure at the time of the procedure ==

== ENCOUNTER → 2024-08-30 | Outpatient (CLI) | payer OTHER | END | disposition home or self-care (01) | LOC: WOUNDCARE 08-29 10:59 | PROVIDERS: ATTEND Nurse Practitioner Family | DX: T81.89XD Other complications of procedures, not elsewhere classified, subsequent encounter (principal); L02.211 Cutaneous abscess of abdominal wall; I10 Essential (primary) hypertension; J44.89 Other specified chronic obstructive pulmonary disease; D64.9 Anemia, unspecified; G43.909 Migraine, unspecified, not intractable, without status migrainosus; E66.01 Morbid (severe) obesity due to excess calories; F41.9 Anxiety disorder, unspecified; F17.201 Nicotine dependence, unspecified, in remission; Z68.39 Body mass index [BMI] 39.0-39.9, adult; Z85.71 Personal history of Hodgkin lymphoma; Z90.49 Acquired absence of other specified parts of digestive tract; Z98.890 Other specified postprocedural states; Z79.899 Other long term (current) drug therapy; Y83.8 Other surgical procedures as the cause of abnormal reaction of the patient, or of later complication, without mention of misadventure at the time of the procedure ==

== ENCOUNTER → 2024-09-02 | Outpatient (CLI) | payer OTHER | END | disposition home or self-care (01) | LOC: WOUNDCARE 03:10 | PROVIDERS: ATTEND Nurse Practitioner Family | DX: T81.89XD Other complications of procedures, not elsewhere classified, subsequent encounter (principal); L02.211 Cutaneous abscess of abdominal wall; D64.9 Anemia, unspecified; I10 Essential (primary) hypertension; J44.89 Other specified chronic obstructive pulmonary disease; J44.9 Chronic obstructive pulmonary disease, unspecified; E43 Unspecified severe protein-calorie malnutrition; E66.01 Morbid (severe) obesity due to excess calories; F41.9 Anxiety disorder, unspecified; F17.201 Nicotine dependence, unspecified, in remission; Z85.71 Personal history of Hodgkin lymphoma; Z68.39 Body mass index [BMI] 39.0-39.9, adult; Z90.49 Acquired absence of other specified parts of digestive tract; Z98.890 Other specified postprocedural states; Z79.899 Other long term (current) drug therapy; Y83.8 Other surgical procedures as the cause of abnormal reaction of the patient, or of later complication, without mention of misadventure at the time of the procedure ==

== ENCOUNTER → 2024-09-04 | Outpatient (CLI) | payer OTHER | END | disposition home or self-care (01) | LOC: WOUNDCARE 02:01 | PROVIDERS: ATTEND Nurse Practitioner Family | DX: T81.89XD Other complications of procedures, not elsewhere classified, subsequent encounter (principal); L02.211 Cutaneous abscess of abdominal wall; I10 Essential (primary) hypertension; G43.909 Migraine, unspecified, not intractable, without status migrainosus; D64.9 Anemia, unspecified; J44.89 Other specified chronic obstructive pulmonary disease; E66.01 Morbid (severe) obesity due to excess calories; F41.9 Anxiety disorder, unspecified; Z68.39 Body mass index [BMI] 39.0-39.9, adult; Z85.71 Personal history of Hodgkin lymphoma; Z90.49 Acquired absence of other specified parts of digestive tract; Z95.1 Presence of aortocoronary bypass graft; Z98.890 Other specified postprocedural states; Z79.899 Other long term (current) drug therapy; Y83.8 Other surgical procedures as the cause of abnormal reaction of the patient, or of later complication, without mention of misadventure at the time of the procedure ==

== ENCOUNTER → 2024-09-06 | Outpatient (CLI) | payer OTHER | END | disposition home or self-care (01) | LOC: WOUNDCARE 01:35 | PROVIDERS: ATTEND Nurse Practitioner Family | DX: T81.89XD Other complications of procedures, not elsewhere classified, subsequent encounter (principal); L02.211 Cutaneous abscess of abdominal wall; I10 Essential (primary) hypertension; J44.89 Other specified chronic obstructive pulmonary disease; D64.9 Anemia, unspecified; E43 Unspecified severe protein-calorie malnutrition; G43.909 Migraine, unspecified, not intractable, without status migrainosus; E66.01 Morbid (severe) obesity due to excess calories; F41.9 Anxiety disorder, unspecified; F17.201 Nicotine dependence, unspecified, in remission; Z68.39 Body mass index [BMI] 39.0-39.9, adult; Z85.71 Personal history of Hodgkin lymphoma; Z90.49 Acquired absence of other specified parts of digestive tract; Z98.890 Other specified postprocedural states; Y83.8 Other surgical procedures as the cause of abnormal reaction of the patient, or of later complication, without mention of misadventure at the time of the procedure ==

== ENCOUNTER → 2024-09-09 | Outpatient (CLI) | payer OTHER | END | disposition home or self-care (01) | LOC: WOUNDCARE 01:58 | PROVIDERS: ATTEND Nurse Practitioner Family | DX: T81.89XD Other complications of procedures, not elsewhere classified, subsequent encounter (principal); L02.211 Cutaneous abscess of abdominal wall; L98.492 Non-pressure chronic ulcer of skin of other sites with fat layer exposed; I10 Essential (primary) hypertension; D64.9 Anemia, unspecified; J44.89 Other specified chronic obstructive pulmonary disease; G43.909 Migraine, unspecified, not intractable, without status migrainosus; E43 Unspecified severe protein-calorie malnutrition; E66.01 Morbid (severe) obesity due to excess calories; F17.210 Nicotine dependence, cigarettes, uncomplicated; F41.9 Anxiety disorder, unspecified; Z68.39 Body mass index [BMI] 39.0-39.9, adult; Z85.71 Personal history of Hodgkin lymphoma; Z90.49 Acquired absence of other specified parts of digestive tract; Z98.890 Other specified postprocedural states; Z79.899 Other long term (current) drug therapy; Y83.8 Other surgical procedures as the cause of abnormal reaction of the patient, or of later complication, without mention of misadventure at the time of the procedure ==

== ENCOUNTER → 2024-09-11 | Outpatient (CLI) | payer OTHER | END | disposition home or self-care (01) | LOC: WOUNDCARE 02:21 | PROVIDERS: ATTEND Nurse Practitioner Family | DX: T81.89XD Other complications of procedures, not elsewhere classified, subsequent encounter (principal); L02.211 Cutaneous abscess of abdominal wall; D64.9 Anemia, unspecified; I10 Essential (primary) hypertension; J44.89 Other specified chronic obstructive pulmonary disease; E43 Unspecified severe protein-calorie malnutrition; E66.01 Morbid (severe) obesity due to excess calories; F17.201 Nicotine dependence, unspecified, in remission; F41.9 Anxiety disorder, unspecified; Z85.71 Personal history of Hodgkin lymphoma; Z68.39 Body mass index [BMI] 39.0-39.9, adult; Z90.49 Acquired absence of other specified parts of digestive tract; Z98.890 Other specified postprocedural states; Z79.899 Other long term (current) drug therapy; Y83.8 Other surgical procedures as the cause of abnormal reaction of the patient, or of later complication, without mention of misadventure at the time of the procedure ==

== ENCOUNTER → 2024-09-13 | Outpatient (CLI) | payer OTHER | LOC: WOUNDCARE 00:58 | PROVIDERS: ATTEND Nurse Practitioner Family | DX: T81.89XD Other complications of procedures, not elsewhere classified, subsequent encounter (principal); L02.211 Cutaneous abscess of abdominal wall; I10 Essential (primary) hypertension; D64.9 Anemia, unspecified; J44.89 Other specified chronic obstructive pulmonary disease; G43.909 Migraine, unspecified, not intractable, without status migrainosus; E66.01 Morbid (severe) obesity due to excess calories; F17.201 Nicotine dependence, unspecified, in remission; F41.9 Anxiety disorder, unspecified; Z68.39 Body mass index [BMI] 39.0-39.9, adult; Z90.49 Acquired absence of other specified parts of digestive tract; Z95.1 Presence of aortocoronary bypass graft; Z98.890 Other specified postprocedural states; Z79.899 Other long term (current) drug therapy; Z85.71 Personal history of Hodgkin lymphoma; Y83.8 Other surgical procedures as the cause of abnormal reaction of the patient, or of later complication, without mention of misadventure at the time of the procedure ==

== ENCOUNTER → 2024-09-16 | Outpatient (CLI) | payer OTHER | END | disposition home or self-care (01) | LOC: WOUNDCARE 02:55 | PROVIDERS: ATTEND Nurse Practitioner Family | DX: T81.89XD Other complications of procedures, not elsewhere classified, subsequent encounter (principal); L02.211 Cutaneous abscess of abdominal wall; D64.9 Anemia, unspecified; I10 Essential (primary) hypertension; J44.89 Other specified chronic obstructive pulmonary disease; E43 Unspecified severe protein-calorie malnutrition; G43.909 Migraine, unspecified, not intractable, without status migrainosus; E66.01 Morbid (severe) obesity due to excess calories; F41.9 Anxiety disorder, unspecified; F17.201 Nicotine dependence, unspecified, in remission; Z68.39 Body mass index [BMI] 39.0-39.9, adult; Z85.71 Personal history of Hodgkin lymphoma; Z90.49 Acquired absence of other specified parts of digestive tract; Z98.890 Other specified postprocedural states; Z79.899 Other long term (current) drug therapy; Y83.8 Other surgical procedures as the cause of abnormal reaction of the patient, or of later complication, without mention of misadventure at the time of the procedure ==

== ENCOUNTER → 2024-09-18 | Outpatient (CLI) | payer OTHER | END | disposition home or self-care (01) | LOC: WOUNDCARE 03:01 | PROVIDERS: ATTEND Nurse Practitioner Family | DX: T81.89XD Other complications of procedures, not elsewhere classified, subsequent encounter (principal); L02.211 Cutaneous abscess of abdominal wall; L98.492 Non-pressure chronic ulcer of skin of other sites with fat layer exposed; D64.9 Anemia, unspecified; I10 Essential (primary) hypertension; J44.89 Other specified chronic obstructive pulmonary disease; G43.909 Migraine, unspecified, not intractable, without status migrainosus; E43 Unspecified severe protein-calorie malnutrition; E66.01 Morbid (severe) obesity due to excess calories; F17.201 Nicotine dependence, unspecified, in remission; F41.9 Anxiety disorder, unspecified; Z68.39 Body mass index [BMI] 39.0-39.9, adult; Z85.71 Personal history of Hodgkin lymphoma; Z90.49 Acquired absence of other specified parts of digestive tract; Z98.890 Other specified postprocedural states; Z79.899 Other long term (current) drug therapy; Y83.8 Other surgical procedures as the cause of abnormal reaction of the patient, or of later complication, without mention of misadventure at the time of the procedure ==

== ENCOUNTER → 2024-09-20 | Outpatient (CLI) | payer OTHER | LOC: WOUNDCARE 00:40 | PROVIDERS: ATTEND Nurse Practitioner Family | DX: T81.89XD Other complications of procedures, not elsewhere classified, subsequent encounter (principal); L02.211 Cutaneous abscess of abdominal wall; D64.9 Anemia, unspecified; I10 Essential (primary) hypertension; J44.89 Other specified chronic obstructive pulmonary disease; J44.9 Chronic obstructive pulmonary disease, unspecified; E43 Unspecified severe protein-calorie malnutrition; E66.01 Morbid (severe) obesity due to excess calories; F17.201 Nicotine dependence, unspecified, in remission; F41.9 Anxiety disorder, unspecified; Z68.39 Body mass index [BMI] 39.0-39.9, adult; Z85.71 Personal history of Hodgkin lymphoma; Z98.890 Other specified postprocedural states; Z90.49 Acquired absence of other specified parts of digestive tract; Z79.899 Other long term (current) drug therapy; Y83.8 Other surgical procedures as the cause of abnormal reaction of the patient, or of later complication, without mention of misadventure at the time of the procedure ==

== ENCOUNTER → 2024-09-27 | Outpatient (CLI) | payer OTHER | END | disposition home or self-care (01) | LOC: WOUNDCARE 00:28 | PROVIDERS: ATTEND Nurse Practitioner Family | DX: T81.89XD Other complications of procedures, not elsewhere classified, subsequent encounter (principal); L02.211 Cutaneous abscess of abdominal wall; D64.9 Anemia, unspecified; I10 Essential (primary) hypertension; J44.89 Other specified chronic obstructive pulmonary disease; E43 Unspecified severe protein-calorie malnutrition; G43.909 Migraine, unspecified, not intractable, without status migrainosus; E66.01 Morbid (severe) obesity due to excess calories; F17.201 Nicotine dependence, unspecified, in remission; F41.9 Anxiety disorder, unspecified; Z68.39 Body mass index [BMI] 39.0-39.9, adult; Z85.71 Personal history of Hodgkin lymphoma; Z90.49 Acquired absence of other specified parts of digestive tract; Z98.890 Other specified postprocedural states; Z79.899 Other long term (current) drug therapy; Y83.8 Other surgical procedures as the cause of abnormal reaction of the patient, or of later complication, without mention of misadventure at the time of the procedure ==

== ENCOUNTER → 2024-10-04 | Outpatient (CLI) | payer OTHER | END | disposition home or self-care (01) | LOC: WOUNDCARE 02:32 | PROVIDERS: ATTEND Nurse Practitioner Family | DX: T81.89XD Other complications of procedures, not elsewhere classified, subsequent encounter (principal); L02.211 Cutaneous abscess of abdominal wall; I10 Essential (primary) hypertension; J44.89 Other specified chronic obstructive pulmonary disease; D64.9 Anemia, unspecified; G43.909 Migraine, unspecified, not intractable, without status migrainosus; E66.01 Morbid (severe) obesity due to excess calories; E43 Unspecified severe protein-calorie malnutrition; F41.9 Anxiety disorder, unspecified; F17.201 Nicotine dependence, unspecified, in remission; Z68.39 Body mass index [BMI] 39.0-39.9, adult; Z85.71 Personal history of Hodgkin lymphoma; Z90.49 Acquired absence of other specified parts of digestive tract; Z98.890 Other specified postprocedural states; Z79.899 Other long term (current) drug therapy; Y83.8 Other surgical procedures as the cause of abnormal reaction of the patient, or of later complication, without mention of misadventure at the time of the procedure ==

== ENCOUNTER → 2024-10-11 | Outpatient (CLI) | payer OTHER | LOC: WOUNDCARE 01:10 | PROVIDERS: ATTEND Nurse Practitioner Family | DX: T81.89XD Other complications of procedures, not elsewhere classified, subsequent encounter (principal); L02.211 Cutaneous abscess of abdominal wall; I10 Essential (primary) hypertension; J44.89 Other specified chronic obstructive pulmonary disease; D64.9 Anemia, unspecified; G43.909 Migraine, unspecified, not intractable, without status migrainosus; E43 Unspecified severe protein-calorie malnutrition; E66.01 Morbid (severe) obesity due to excess calories; F41.9 Anxiety disorder, unspecified; F17.201 Nicotine dependence, unspecified, in remission; Z68.39 Body mass index [BMI] 39.0-39.9, adult; Z85.71 Personal history of Hodgkin lymphoma; Z90.49 Acquired absence of other specified parts of digestive tract; Z98.890 Other specified postprocedural states; Z79.899 Other long term (current) drug therapy; Y83.8 Other surgical procedures as the cause of abnormal reaction of the patient, or of later complication, without mention of misadventure at the time of the procedure ==

== ENCOUNTER → 2024-10-18 | Outpatient (CLI) | payer OTHER | LOC: WOUNDCARE 00:50 | PROVIDERS: ATTEND Nurse Practitioner Family | DX: T81.89XD Other complications of procedures, not elsewhere classified, subsequent encounter (principal); L02.211 Cutaneous abscess of abdominal wall; I10 Essential (primary) hypertension; D64.9 Anemia, unspecified; J44.89 Other specified chronic obstructive pulmonary disease; G43.909 Migraine, unspecified, not intractable, without status migrainosus; E66.01 Morbid (severe) obesity due to excess calories; E43 Unspecified severe protein-calorie malnutrition; F41.9 Anxiety disorder, unspecified; F17.201 Nicotine dependence, unspecified, in remission; Z68.39 Body mass index [BMI] 39.0-39.9, adult; Z85.71 Personal history of Hodgkin lymphoma; Z90.49 Acquired absence of other specified parts of digestive tract; Z79.899 Other long term (current) drug therapy; Y83.8 Other surgical procedures as the cause of abnormal reaction of the patient, or of later complication, without mention of misadventure at the time of the procedure ==

== ENCOUNTER → 2024-10-25 | Outpatient (CLI) | payer OTHER | LOC: WOUNDCARE 00:16 | PROVIDERS: ATTEND Nurse Practitioner Family | DX: T81.89XD Other complications of procedures, not elsewhere classified, subsequent encounter (principal); L02.211 Cutaneous abscess of abdominal wall; I10 Essential (primary) hypertension; D64.9 Anemia, unspecified; J44.89 Other specified chronic obstructive pulmonary disease; F41.9 Anxiety disorder, unspecified; G43.909 Migraine, unspecified, not intractable, without status migrainosus; E66.01 Morbid (severe) obesity due to excess calories; Z68.39 Body mass index [BMI] 39.0-39.9, adult; Z85.71 Personal history of Hodgkin lymphoma; Z90.49 Acquired absence of other specified parts of digestive tract; Z98.890 Other specified postprocedural states; Z79.899 Other long term (current) drug therapy; Y83.8 Other surgical procedures as the cause of abnormal reaction of the patient, or of later complication, without mention of misadventure at the time of the procedure ==